=== PATIENT | female | born 1955 | race Caucasian/White ===

== ENCOUNTER 2016-08-12 11:06 | Day surgery (SDC) | payer OTHER ==
[~2016-08-12] VITALS: Ht 157.5 cm; Wt 97.5 kg
[~2016-08-12 11:06] MED LIST: CHOL200025 PO; Lactated Ringer's 1,000 ML IV ONE; PANT40TA3 PO; SUMA50TA2 PO; VENL37.57 PO
[2016-08-12] MEDS ORDERED: Propofol 10,000 mCg/mL 20 mL Inj ONE (11:07)
[2016-08-12 11:22] VITALS: BP 135/85; PULSE 81; RESP 16; O2SAT 97
[2016-08-12] MEDS ORDERED: Lactated Ringer's 1,000 ML IV SCH (11:39)
[2016-08-12] MEDS ORDERED: Ondansetron 2 mg/mL 2 mL Inj IVPUSH PRN (11:40)
[2016-08-12] MEDS ORDERED: MetoCLOpramide 5 mg/mL 2 mL Inj IVPUSH PRN (11:40)
[2016-08-12 12:00] VITALS: BP 143/85; PULSE 76; RESP 16; O2SAT 95
--- NOTE | 2016-08-12 12:11 | PCM.HPANE ---
Patient Data Surgeon Admitting Provider: Attending Provider:Nelly Naik MD Primary Care Physician:Bernadette Garcia MD Other Provider:Scott Birmingham Anesthesia Reason for Visit GERD Ht/WT & BMI Height (Feet): 5 Height (Inches): 2 Weight (Kilograms): 97.52 Body Mass Index 39.00 Allergies Coded Allergies: acetaminophen (Verified Allergy, Unknown, 06/28/13) hydrocodone (Verified Allergy, Unknown, 08/12/16) Past Anesthesia History Anesthesia History: Positive for:: Fam Anesthesia Reaction (Nephew with MH ( sister son)), Fam Malignant Hypertherm (Nephew), Denies:: Abnormal Airway, Anesthesia Reactions (Tonsils, tendon surgery in wrist), Difficult Intubation, Malignant Hyperthermia Diabetes History Hx Diabetes?: No MRSA MRSA: No Medications Reported Medications Cholecalciferol (Vitamin D3) (Vitamin D3)2,000 Unit Tablet2,000 Unit PO 08/12/16 Venlafaxine 37.5 Mg Kuxcox39.5 Mg PO BID #60 TABLET Ref 0 06/29/[address] 40 Mg Tablet.dr40 Mg PO DAILY 30 Days Ref 0 06/29/13 Sumatriptan Succinate 50 Mg [id number] Mg PO PRN PRN For Headache 06/29/13 History History of ENT Problems?: No HEENT History: Positive for:: Dysphagia (Current problem ) Denies:: Abnormal Airway Cataracts Difficult Intubation Glaucoma Hearing Problem Sinus Problem TMJ Denture Type: None Teeth Condition: Within Normal Limits Hx of Heart Problems?: No Cardiovascular History: Denies:: AICD Abdominal Aortic Aneurism Atrial Fibrillation Cardiac Surgery Chest Pain Congestive Heart Failure Coronary Artery Disease Edema Heart Murmur Hypertension Irregular Heartbeat Pacemaker Peripheral Vascular Rheumatic Fever Thrombophlebitis Valvular Heart Disease Hx of Respiratory Problem?: Yes Respiratory History: Denies:: Asthma COPD Chest Surgery Cough Dyspnea Emphysema Hemoptysis Oxygen Administration Pneumonia Pulmonary Embolism Tuberculosis Use of C-PAP Machine Use of Inhalers / NEBS Other Resp Pertinent History: GIL SOB with walking Hx Neurologic Problems?: No Neurological History: Denies:: Alzheimer's Disease CVA Dementia Dizziness Headaches Multiple Sclerosis Parkinson's Disease Peripheral Neuropathy Seizures TIA Hx of GI Problems?: Yes Gastrointestinal History: Denies:: Cirrhosis Diverticulitis Gall Bladder Disease Gastroesphageal Reflux Gastrointestinal Bleeding Heartburn Hepatitis Hiatal Hernia Liver Disease Rectal Bleeding Hx of Problems?: No Genitourinary History: Denies:: HX of Hemodialysis Kidney Stones Urinary Tract Infection HX of Peritoneal Dialysis: No Female Hx: Denies:: Currently Endometriosis Pelvic Inflammatory Problems with Breasts? Skin History: Denies:: History Skin Disorders? Pressure Ulcers Hx Musculoskeletal Problems?: No Musculoskeletal History: Denies:: Back Injury Degenerative Joint Fibromyalgia Joint Replacement Musculoskeletal Trauma Myasthenia Gravis Osteoarthritis Rheumatoid Arthritis Systemic Lupus Psycho Social History: Positive for:: Anxiety Hx Depression Denies:: Bipolar Disorder Suicide Attempt Hx Surgeries?: Yes (Left leg melanoma at , hysterectomy, left shouder, melissa carpal tunnel) Hx Any Other Health Problems?: Yes Hx Diabetes: No Hx Alcohol Use: No (6/month)Hx Substance Use: NoHave You Smoked inLast 12 mo: No Stop/Bang Treated for Sleep Apnea?: Yes Do You Have a CPAP Machine?: Yes Risk Assessment Category Category 1A: Patient has history of documented sleep apnea, and HAS NOT received any narcotic, sedative or anesthesia administration during this stay. Category 1B: Patient has history of documented sleep apnea, and HAS received any narcotic , sedative or anesthesia administration during this stay Category 2: Patient has SUSPECTED Obstructive Sleep Apnea, and HAS received any narcotic , sedative or anesthesia administration during this stay. Category 3: Patient has SUSPECTED Obstructive Sleep Apnea and HAS NOT received narcotic, sedative or anesthesia administration during this stay. Category 4: Outpatient in Procedural Areas with known sleep apnea or who screen positive for High Risk via the STOP/BANG questionnaire. Exam Exam Vital Signs Vital Signs Date Time Temp Pulse Resp B/P Pulse Ox O2 Delivery O2 Flow Rate FiO2 08/12/16 11:22 81 16 135/85 97 Room Air General Appearance: Alert, Oriented X3, Cooperative, No Acute Distress HEENT/AIRWAY: MP 2, Neck Movement (FROM, large neck circumference), Mouth Opening (3 FBMO) Lungs: Clear to Auscultation, Normal Air Movement Heart: Exam Unremarkable, Regular Rate/Rhythm, No Murmurs/Rubs/Gallops Meds/Labs/Diagnostics Admission Meds Current Medications Lactated Ringer's (Lr) 1,000 ml @ 10 mls/hr Q24H ONCE IV Last administered on 08/12/16t 11:36; Start 08/12/16 at 06:00; Stop 08/13/16 at 05:59 Lidocaine HCl (Xylocaine Viscous 2% Soln 15mL) 15 ml ONCE ONCE PO Last administered on 08/12/16t 11:36; Start 08/12/16 at 07:30; Stop 08/12/16 at 07:32; Status DC Plan Impression Patient chart reviewed, patient interviewed and anesthestic plan with risks, benefits, and alternatives discussed, and informed consent obtained. NPO per Anesth. Guidelines: Yes ASA Physical Status: ASA2 Mod Systemic Disease Anesthetic Plan: MAC Bene/Risks/Altern/Consents: Yes HP Complete Prior to Induction: Yes Ritesh Oglesby MD Aug 12, 2016 11:39
--- NOTE | 2016-08-12 12:11 | PCM.ANEP1 ---
Post Anesthesia PACU Phase 1 Assessment Vital Signs Vital Signs Date Time Temp Pulse Resp B/P Pulse Ox O2 Delivery O2 Flow Rate FiO2 08/12/16 12:00 36.4 76 16 143/85 95 Room Air 08/12/16 11:22 81 16 135/85 97 Room Air Anesthetic Administered: MAC Level of Alertness: Awake, talking CONNELLY's with Equal Strength: Yes Pain: No Nausea or Vomiting: No CV Function & Hydration Stable: No Airway Device: N/A Oxygen Delivery: Room Air Lungs: Clear to Auscultation, Normal Air Movement Dermatome Level: Full Sensation PACU Phase 2 Assessment Complications: No Follow up Care: N/A Patient Instructions Provided: N/A Ritesh Oglesby MD Aug 12, 2016 12:11
[2016-08-12 12:16] VITALS: BP 129/90; PULSE 73; RESP 12; O2SAT 96
[2016-08-12 12:22] VITALS: BP 140/89; PULSE 74; RESP 14; O2SAT 94
--- NOTE | 2016-08-13 13:56 | PATH ---
SURGICAL PATHOLOGY Attending Physician:Charlie Moore CASE STATUS: Signed Out PATIENT NAME: RISHI RCAIN PID: [id number] : 1955 DATE COLLECTED:08/12/2016 19:39 SPECIMEN: 1: Gastric, Biopsy 2: Stomach, Polyp, Biopsy 3: Esophagus, Biopsy CLINICAL HISTORY: 1). RANDOM GASTRIC BIOPSY 2). GASTRIC BODY POLYP 3). DISTAL ESOPHAGUS BIOPSY FINAL DIAGNOSIS: 1.RANDOM GASTRIC BIOPSIES: MILD CHRONIC GASTRITIS, FOCALLY ACTIVE INVOLVING ANTRAL AND FUNDIC MUCOSA. Immunohistochemistry for Helicobacter pending, to be reported by addendum. Negative for intestinal metaplasia. Negative for dysplasia and malignancy. 2.GASTRIC BODY POLYP: FUNDIC GLAND POLYP, NEGATIVE FOR ATYPIA. Negative for evidence of Helicobacter by H&E stain. Negative for intestinal metaplasia. 3.DISTAL ESOPHAGUS BIOPSY: SQUAMOUS MUCOSA AND GASTRIC CARDIA-TYPE MUCOSA NEGATIVE FOR SPECIALIZED METAPLASIA OF OLEA' S-TYPE ESOPHAGUS. Negative for dysplasia and malignancy. Negative for squamous intraepithelial eosinophils. ICD10 K29.70 GROSS DESCRIPTION: The specimen is received in three formalin filled containers labeled with the patient's name. 1). The specimen is sublabeled "random gastric" and consists of 3 tiny portions of tissue which aggregate to 0.3 x 0.3 x 0.2 CM. The specimen is entirely submitted in cassette 1A. 2). The specimen is sublabeled "gastric body polyp" and consists of 2 portions of tissue which aggregate to 0.2 x 0.2 x 0.2 CM. The specimen is entirely submitted in cassette 2A. 3). The specimen is sublabeled "distal esophagus" and consists of 3 portions of tissue which aggregate to 0.3 x 0.3 x 0.2 CM. The specimen is entirely submitted in cassette 3A. 08/12/2016 [facility] MICRO DESCRIPTION: See diagnosis. ICD-9 CODES: CPT CODES: 1: 60087, 05413 2: 05839 3: 26180 PROCEDURE/ADDENDA: Immunohistochemistry SPI Interpretation {Not Entered} Results-Comments Immunohistochemistry Results:1.RANDOM GASTRIC BIOPSIES: NEGATIVE FOR HELICOBACTER PYLORI BY IMMUNOHISTOCHEMISTRY. This test was developed and its performance characteristics determined by [employer] ([facility]). It has not been cleared or approved by the [place]. Food and Drug Administration. The FDA has determined that such clearance or approval is not necessary. This test is used for clinical purposes. It should not be regarded as investigational or for research. Electronically Signed Out Tejas Spaulding MD Electronically Signed Out Tejas Spaulding MD [facility] [address], [place] [address] Technical component performed at [facility], [facility] [address], [place], [address]
--- NOTE | 2016-09-27 21:12 | ENDO ---
[address] [address] ENDOSCOPY PROCEDURE PATIENT: RISHI CRAIN : 1955 MR#: [id number] ADMIT: 08/12/2016 JOB ID: [id number] PROCEDURE PERFORMED: Esophagogastroduodenoscopy. INDICATION: Gastroesophageal reflux. MEDICATIONS: Please see anesthesia report for details regarding ASA classification, Mallampati score, and medications. INSTRUMENT USED: [id number]. PROCEDURE DETAILS: After informed consent was obtained, the patient was brought into the GI suite, where she was placed on oxygen via nasal cannula and monitored with continuous pulse oximeter, telemetry, and blood pressure monitoring. A time-out was performed. Then, she was placed in a left lateral decubitus position and medications were administered for sedation. A bite block was placed. The standard EGD scope was inserted through the bite block and advanced under direct visualization to the second portion of the duodenum without difficulty. FINDINGS: 1. Normal-appearing duodenal bulb, first and second portion. 2. Normal-appearing pylorus. Mild erythema was noted in the antrum and body of stomach. Multiple random biopsies were obtained. In the body of stomach, there were multiple polyps ranging in size from diminutive to approximately 4 mm. Polyp appearance was consistent with fundic gland polyps. The largest polyp was biopsied. 3. Retroflexed views in the gastric body revealed a normal-appearing cardia and fundus. 4. The GE junction was at approximately 40 cm and there was a short tongue of salmon-colored mucosa arising up to 38 cm, suggestive of Rojo's. Multiple biopsies were obtained. The remainder of the esophagus was otherwise unremarkable. IMPRESSION: 1. 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 2. Mild gastritis. RECOMMENDATIONS: 1. Continue PPI. 2. Follow up in GI clinic to review biopsy results. COMPLICATIONS: None. ESTIMATED BLOOD LOSS: Less than 5 mL.
== END 2016-08-12 23:59 | disposition home or self-care (01) ==
LOC: END 11:06
PROVIDERS: ATTEND Internal Medicine Gastroenterology
DX: K29.50 Unspecified chronic gastritis without bleeding (principal); K31.7 Polyp of stomach and duodenum; G47.30 Sleep apnea, unspecified
CPT/HCPCS: 43239; J7120